=== PATIENT | male | born 2000 | race Caucasian/White ===

== ENCOUNTER → 2020-07-28 | Outpatient (CLI) | payer MEDICAID | LOC: ZCOL.LAB 18:38 | DX: Z20.828 Contact with and (suspected) exposure to other viral communicable diseases (principal) ==

== ENCOUNTER → 2020-08-01 | Outpatient (CLI) | payer SELFPAY | LOC: ZCOL.LAB 14:01 | DX: Z20.828 Contact with and (suspected) exposure to other viral communicable diseases (principal) ==